=== PATIENT | female | born 1995 | race African-American/Black ===

== ENCOUNTER 2023-07-15 07:13 | Inpatient (IN) ==
--- NOTE | 2023-07-15 08:18 | History & Physical Report ---
Date of Service July 15, 2023 Assessment & Plan (1) Two vessel umbilical cord in [place] , antepartum: Plan: 28 yo at 39 3/7 wga presents w/ c/o vb and discharge VSS Fetus cat 1 VB/discharge - rom ruled out, mucous bloody discharge seen. SVE 3-4, seems a little stretchy so ?early labor. Will ambulate and recheck in a few hours History of Present Illness Chief Complaint: VB/discharge Primary Care Provider: NO PCP 28 yo at 39 3/7 wga presents for eval due to vb/discharge. Called early t his AM w/ vb in underwear and w/ wiping and ctx q20 and rec for eval due to bleeding. Since call, vb has improved, but thinks she is having leaking. +FM, notes ctx q10 PNI: 2VC Rubella nonimm G1 2021 SAB q30-60d cycles denies hx stis Allergies Allergy/AdvReac Type Severity Reaction Status Date / Time Penicillins Allergy Intermediate Swelling Verified 07/12/23 13:19 of Lip/Tongue/Throat Home Medications Medication Instructions Recorded Confirmed Type PNV [id number] PO 12/18/22 07/12/23 History [ Gummies(zinc chelate)] RSV vac, preF A and preF B(PF) 120 0.5 ml IM ONCE #1 ea 05/24/23 07/12/23 Rx mcg/0.5 mL IM solution (Abrysvo) Patient History Medical History History of chicken pox Surgical History S/P wisdom tooth extraction Family History (Updated 12/18/22 @ 10:00 by Licha Alexandra) Father Hypertension Denies family history of Ovarian cancer Breast cancer Colorectal cancer Social History (Updated 12/18/22 @ 10:02 by Licha Alexandra) Smoking Status: Never smoker Do You Dip or Chew Tobacco: No; Hx Alcohol Use: No Hx Substance Use: No Beliefs That Will Affect Care: None marital status: marital status details: tania Burgos (34) [phone] Current Living Situation: Spouse Current Living Situation Comment: lives with fob, dogs current occupational status: employed 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 Nitrazine equiv due to bloody mucous, no pooling or ferning Results & Data Vital Signs (Past 12 Hours) Vital Signs Temp Pulse Resp BP 07/15/23 07:20 98.2 F 18 07/15/23 07:18 91 H 135/88 Laboratory Results OB Labs: Blood Type O Positive 12/23/22 Antibody Screen NEGATIVE 12/23/22 Hemoglobin 12.3 g/dl (12.0-16.0) 04/22/23 Hematocrit 37.9 % (37.0-47.0) 04/22/23 Mean Corpuscular Volume 82.7 fL (80.0-100.0) 12/23/22 Platelet Count 328 K/uL (130-400) 12/23/22 Rubella IgG Antibody Non Immune (Immune) L 12/23/22 Rapid Plasma Reagin Nonreactive (Nonreactive) 12/23/22 Hepatitis B Surface Antigen. NON-REACTIVE (NON-REACTIVE) 12/23/22 Hepatitis C Antibody (EIA) NON-REACTIVE (NON-REACTIVE) 12/23/22 HIV (1&2) Ag and Ab Confirmation NON-REACTIVE (NON-REACTIVE) 12/23/22 Glucose 1 Hour 50 gm Load 108 mg/dl (70-130) 04/22/23 OB Optional Labs: Chlamydia trachomatis RNA Not Detected (NotDetected) 12/23/22 Neisseria gonorrhoeae RNA Not Detected (NotDetected) 12/23/22 GBS neg Coding Level of Care Code None Diagnoses Two vessel umbilical cord in [place] , antepartum O09.899
[2023-07-15] MEDS ORDERED: OXYTOCIN 30 UNITS/NSS 30 UNITS/500 ML BAG IV PRN ×3 (10:20→22:23)
[2023-07-15] MEDS ORDERED: LIDOCAINE 1% LOCAL 20 ML VIAL INFIL PRN (10:20)
--- NOTE | 2023-07-15 10:24 | Labor Progress Brief Note ---
Date of Service July 15, 2023 Subjective pt feels her ctx are closer and stronger. no leak. Assessment & Plan (1) 39 weeks gestation of : (2) Normal labor: (3) Two vessel umbilical cord in [place] , antepartum: (4) Not immune to rubella: Plan admit, labs, iv. early active labor. can arom when able. pt considering epidural. fhts categ 1. Physical Exam Constitutional: WD/WN, vitals as above Respiratory: normal respiratory effort, lungs clear to auscultation Cardiovascular: Rate/Rhythm: regular rate and regular rhythm Gastrointestinal (Abdomen): soft gravid nt Musculoskeletal: no edema nontender calves Neurologic: grossly normal Psychiatric: A+Ox3, euthymic affect Genitourinary: Manual OB Exam: + cervical dilation 5 cm, + cervical effacement 90% and + station -2 OB Exam Monitor Tracing: + external FHT monitor used, + external uterine monitor used (difficult tracing, irrit, ? q2), + category I and + normal FHT variability Results & Data Vital Signs (Past 12 Hours) Vital Signs Temp Pulse Resp BP 07/15/23 07:20 98.2 F 18 07/15/23 07:18 91 H 135/88 Coding Level of Care Code None Diagnoses 39 weeks gestation of Z3A.39 Normal labor O80; Z37.9 Two vessel umbilical cord in [place] , antepartum O09.899 Not immune to rubella Z78.9
[2023-07-15 10:42] LABS: Hematocrit (blood only) 36.4 % (37.0-47.0); Hemoglobin 12.4 g/dl (12.0-16.0); Mean Corpuscular Hemoglobin 27.9 pg (25.0-34.0); Mean Corpuscular Hgb Conc 34.1 g/dL (32.0-36.0); Mean Platelet Volume 11.2 fL (9.4-12.4); Platelet Count 267 K/uL (130-400); RDW Coefficient of Variation 14.9 % (11.5-14.5); RDW Standard Deviation 44.4 fL (36.4-46.3); Red Blood Count 4.44 M/uL (4.20-5.40); White Blood Count 12.35 K/ul (4.8-10.8)
[2023-07-15] MEDS: LACTATED RINGER'S 1,000 ML IV PRN ×3 (10:53→20:23)
[2023-07-15] MEDS ORDERED: fentaNYL citrate PF 100 MCG/2 ML VIAL ONE (10:57)
[2023-07-15] MEDS ORDERED: LIDOCAINE 2%/EPINEPHRINE 1:200,000 20 ML PF ONE ×2 (10:57→19:05)
[2023-07-15] MEDS ORDERED: fentANYL 2 MCG/ML BUPIVacaine 0.125%-NSS 100ML BAG ONE (10:57)
[2023-07-15] MEDS ORDERED: ePHEDrine sulfate 50 MG/ML AMP ONE (10:57)
[2023-07-15] MEDS ORDERED: SODIUM CHLORIDE 0.9% PF INJ 10 ML VIAL ONE (10:57)
[2023-07-15] MEDS ORDERED: BUPIVACAINE 0.25% PF 30 ML VIAL ONE (10:57)
--- NOTE | 2023-07-15 11:47 | Anesthesiology Consultation ---
Date of Service July 15, 2023 Assessment & Plan (1) Encounter for pre-operative examination: Chart Review Chart Review: Acceptable Risk for Labor Epidural History Height/Weight Height: 5 ft 8 in Weight: 111.13 kg Allergies Allergy/AdvReac Type Severity Reaction Status Date / Time Penicillins Allergy Intermediate Swelling Verified 07/15/23 11:41 of Lip/Tongue/Throat Medications Home Medications Medication Instructions Recorded Confirmed Last Taken vits no.124-ferrous fum 1 tab PO DAILY 07/15/23 07/15/23 Unknown 27 mg iron-folic acid 800 mcg tablet ( Vitamin) Active Medications Generic Name Dose Route Start Last Admin Trade Name Freq PRN Reason Stop Dose Admin Lactated Ringer's 1,000 mls @ 125 mls/hr 07/15/23 10:20 07/15/23 10:53 Lr IV 07/17/23 10:19 999 mls/hr .Q8H PRN Administration L&D Protocol Protocol NPO Last Intake of Fluids Comment: Sips Past Medical History Medical History History of chicken pox Past Family History Family History Father Hypertension Denies family history of Ovarian cancer Breast cancer Colorectal cancer Past Surgical History Surgical History S/P wisdom tooth extraction Social History Smoking Status: Never smoker Do You Dip or Chew Tobacco: No Hx Alcohol Use: No Hx Substance Use: No substance use type: does not use Physical Exam Vital Signs Last Vital Signs Temp 36.8 C 07/15/23 07:20 Pulse 91 H 07/15/23 07:18 Resp 18 07/15/23 07:20 BP 135/88 07/15/23 07:18 Testing Laboratory Results 07/15/23 10:25 Blood Type O Positive 07/15/23 10:25 Antibody Screen NEGATIVE 07/15/23 10:25
[2023-07-15] MEDS ORDERED: SODIUM CHLORIDE 0.9% PF INJ 10 ML VIAL EPI STA (12:08)
[2023-07-15] MEDS ORDERED: LIDOCAINE 2%/EPINEPHRINE 1:200,000 20 ML PF EPI STA (12:08)
[2023-07-15] MEDS ORDERED: LIDOCAINE 2% MPF LOCAL 5 ML VIAL EPI PRN (12:08)
[2023-07-15] MEDS ORDERED: ePHEDrine sulfate 50 MG/ML AMP IV PRN (12:08)
[2023-07-15] MEDS ORDERED: ONDANSETRON INJ 2 MG/ML 2 ML VIAL IV PRN (12:08)
[2023-07-15] MEDS ORDERED: SODIUM CHLORIDE 0.9% PF INJ 10 ML VIAL EPI PRN (12:08)
[2023-07-15] MEDS ORDERED: NALOXONE HCL 1 MG in SODIUM CHLORIDE 0.9% 1,000 ML IV PRN (12:08)
[2023-07-15] MEDS ORDERED: fentaNYL citrate PF 100 MCG/2 ML VIAL EPI STA (12:08)
[2023-07-15] MEDS ORDERED: ROPIVACAINE 0.5% PF 5 MG/ML 20 ML VIAL EPI PRN (12:08)
[2023-07-15] MEDS ORDERED: NALOXONE HCL 0.4 MG/1 ML VIAL/CARP IV PRN (12:08)
[2023-07-15] MEDS ORDERED: fentaNYL citrate PF 100 MCG/2 ML VIAL EPI PRN (12:08)
[2023-07-15] MEDS ORDERED: BUPIVACAINE 0.25% PF 30 ML VIAL EPI PRN (12:08)
[2023-07-15] MEDS ORDERED: fentANYL 2 MCG/ML BUPIVacaine 0.125%-NSS 100ML BAG EPI PRN (12:08)
[2023-07-15] MEDS ORDERED: BUPIVACAINE 0.25% PF 30 ML VIAL EPI STA (12:08)
--- NOTE | 2023-07-15 13:06 | Labor Progress Brief Note ---
Date of Service July 15, 2023 Subjective pt comfortable with epidural. Assessment & Plan (1) 39 weeks gestation of : (2) Normal labor: (3) Two vessel umbilical cord in [place] , antepartum: (4) Not immune to rubella: Plan no significant cx change but now srom so can see how that helps labor pattern. fhts categ 1. may need pit aug. Admission and Anticipated Discharge Date Admission Date: July 15, 2023 Physical Exam Constitutional: WD/WN, vitals as above Genitourinary: Manual OB Exam: + cervical dilation 5 cm, + cervical effacement 80%, + station -2 and + amniotic fluid (SROM) clear OB Exam Monitor Tracing: + external FHT monitor used, + external uterine monitor used (difficult to trace, ? q2-3), + category I and + normal FHT variability Results & Data Vital Signs (Past 12 Hours) Vital Signs Temp Pulse Resp BP Pulse Ox 07/15/23 13:00 88 99 07/15/23 12:55 97 H 98 07/15/23 12:50 109 H 100 07/15/23 12:47 100 H 104/62 07/15/23 12:45 107 H 100 07/15/23 12:40 97 H 100 07/15/23 12:35 107 H 100 07/15/23 12:30 97 H 100 07/15/23 12:29 105 H 100/59 L 07/15/23 12:25 100 07/15/23 12:25 104 H 07/15/23 12:25 102 H 111/60 07/15/23 12:20 99 07/15/23 12:20 109 H 07/15/23 12:20 103 H 114/61 07/15/23 12:15 108 H 99 07/15/23 12:14 102 H 108/55 L 07/15/23 12:13 100 H 107/54 L 07/15/23 12:10 115 H 100/54 L 100 07/15/23 12:08 111 H 112/56 L 07/15/23 12:06 103 H 114/56 L 07/15/23 12:05 95 H 99 07/15/23 12:04 98.1 F 106 H 16 114/59 L 07/15/23 12:03 102 H 117/58 L 07/15/23 12:00 107 H 100 07/15/23 11:55 98 H 128/62 100 07/15/23 11:51 106 H 94 07/15/23 11:50 112 H 94 07/15/23 07:20 98.2 F 18 07/15/23 07:18 91 H 135/88 Coding Level of Care Code None Diagnoses 39 weeks gestation of Z3A.39 Normal labor O80; Z37.9 Two vessel umbilical cord in [place] , antepartum O09.899 Not immune to rubella Z78.9
[2023-07-15] MEDS ORDERED: Nursing to Pharmacy Communication SCH (18:30)
[2023-07-15] MEDS ORDERED: ROPIVACAINE 0.5% 5 MG/ML 30 ML VIAL ONE (19:05)
--- NOTE | 2023-07-15 19:16 | Anesthesia Procedure Note ---
Date of Service July 15, 2023 Anesthesia Epidural Re-Dose Vital Signs Temp Pulse Resp BP Pulse Ox 36.6 C 92 H 18 148/81 H 100 07/15/23 19:05 07/15/23 19:09 07/15/23 19:05 07/15/23 19:07/15/23 19:09 Notes Pain Intensity: 7 Dilatation (cm): 6.0 Effacement (%): 90 Called by nursing to evaluate epidural as the patient is having increased pain. The epidural was re-dosed with the following medications (all medications via epidural route) after negative aspiration of the epidural catheter for CSF/HEME 1.2% lidocaine and 0.2% ropivacaine 7 ml After Epidural Re-Dose Mental Status: alert / awake / arousable Pain: improving with treatment Airway Patency, RR, SpO2: stable & adequate BP & HR: stable & adequate Additional Notes: increased pain across lower back but able to tolerate contractions with breathing hard.
--- NOTE | 2023-07-15 19:49 | Labor Progress Brief Note ---
Date of Service July 15, 2023 Subjective pt recently re-dosed and now comfortable. Assessment & Plan (1) 39 weeks gestation of : (2) Normal labor: (3) Two vessel umbilical cord in [place] , antepartum: (4) Not immune to rubella: Plan good cx change. c/w pitocin. fhts categ 1. Admission and Anticipated Discharge Date Admission Date: July 15, 2023 Physical Exam Constitutional: WD/WN, vitals as above Genitourinary: Manual OB Exam: + cervical dilation 7 cm, + cervical effacement 100%, + station 0 and + amniotic fluid (forebag noted and arom) clear OB Exam Monitor Tracing: + external FHT monitor used, + external uterine monitor used (q3) and + category I Results & Data Vital Signs (Past 12 Hours) Vital Signs Temp Pulse Resp BP Pulse Ox 07/15/23 19:44 105 H 98 07/15/23 19:40 110 H 144/65 H 07/15/23 19:39 101 H 99 07/15/23 19:34 102 H 97 07/15/23 19:29 110 H 99 07/15/23 19:24 98 07/15/23 19:24 102 H 07/15/23 19:24 103 H 122/59 L 07/15/23 19:19 100 H 128/62 100 07/15/23 19:17 96 H 133/64 07/15/23 19:15 94 H 142/66 H 07/15/23 19:14 94 H 99 07/15/23 19:13 89 141/68 H 07/15/23 19:09 92 H 100 07/15/23 19:05 18 07/15/23 19:05 97.9 F 18 07/15/23 19:04 88 97 07/15/23 19:01 97 H 148/81 H 07/15/23 18:59 90 99 07/15/23 18:54 87 97 07/15/23 18:49 86 97 07/15/23 18:46 87 128/65 07/15/23 18:44 90 99 07/15/23 18:39 89 98 07/15/23 18:34 82 98 07/15/23 18:31 86 129/64 07/15/23 18:29 90 99 07/15/23 18:24 99 07/15/23 18:24 88 07/15/23 18:24 85 139/65 07/15/23 18:22 96 H 92 07/15/23 18:19 100 H 96 07/15/23 18:17 99 H 180/99 H 07/15/23 18:10 89 98 07/15/23 18:09 93 H 94 07/15/23 18:05 89 97 07/15/23 18:01 89 145/73 H 07/15/23 18:00 90 98 07/15/23 17:55 94 H 99 07/15/23 17:50 93 H 18 99 07/15/23 17:47 88 144/76 H 07/15/23 17:45 79 98 07/15/23 17:41 102 H 93 07/15/23 17:40 93 H 99 07/15/23 17:35 100 H 99 07/15/23 17:32 95 H 133/73 07/15/23 17:31 99 H 90 07/15/23 17:30 92 H 98 07/15/23 17:25 97 H 98 07/15/23 17:20 97 H 99 07/15/23 17:17 98 H 141/76 H 07/15/23 17:15 97 H 98 07/15/23 17:10 93 H 98 07/15/23 17:05 97 H 99 07/15/23 17:01 98.2 F 95 H 18 128/70 07/15/23 17:00 92 H 99 07/15/23 16:55 97 H 100 07/15/23 16:50 97 H 99 07/15/23 16:46 96 H 117/67 07/15/23 16:45 93 H 99 07/15/23 16:40 99 H 99 07/15/23 16:35 96 H 99 07/15/23 16:31 88 115/61 07/15/23 16:30 90 98 07/15/23 16:25 93 H 97 07/15/23 16:20 88 97 07/15/23 16:16 87 113/59 L 07/15/23 16:15 90 97 07/15/23 16:10 91 H 98 07/15/23 16:05 86 98 07/15/23 16:03 18 07/15/23 16:03 18 07/15/23 16:02 16 07/15/23 16:02 98.2 F 16 07/15/23 16:02 100 H 07/15/23 16:02 103 H 115/69 86 L 07/15/23 16:00 81 97 07/15/23 15:55 80 98 07/15/23 15:50 81 98 07/15/23 15:46 79 117/56 L 07/15/23 15:45 79 98 07/15/23 15:40 81 100 07/15/23 15:35 91 H 99 07/15/23 15:31 82 122/57 L 07/15/23 15:30 80 98 07/15/23 15:25 91 H 100 07/15/23 15:20 94 H 98 07/15/23 15:19 90 92 07/15/23 15:17 88 129/62 07/15/23 15:15 101 H 99 07/15/23 15:10 95 H 100 07/15/23 15:05 98 H 99 07/15/23 15:02 96 H 123/57 L 07/15/23 15:00 106 H 99 07/15/23 14:58 18 07/15/23 14:58 18 07/15/23 14:55 90 98 07/15/23 14:50 86 99 07/15/23 14:47 88 118/58 L 07/15/23 14:45 88 99 07/15/23 14:40 88 99 07/15/23 14:35 84 98 07/15/23 14:31 93 H 128/64 07/15/23 14:30 89 99 07/15/23 14:25 95 H 100 07/15/23 14:20 99 H 100 07/15/23 14:18 90 120/64 07/15/23 14:15 90 98 07/15/23 14:10 90 99 07/15/23 14:05 97 H 100 07/15/23 14:01 98.4 F 88 18 128/63 07/15/23 14:00 92 H 18 99 07/15/23 13:55 93 H 99 07/15/23 13:50 100 H 98 07/15/23 13:46 88 127/62 86 L 07/15/23 13:45 90 98 07/15/23 13:40 90 98 07/15/23 13:36 98 H 90 07/15/23 13:35 98 H 99 07/15/23 13:31 93 H 98/59 L 07/15/23 13:30 94 H 100 07/15/23 13:25 87 98 07/15/23 13:20 94 H 100 07/15/23 13:16 99 H 101/58 L 07/15/23 13:15 97 H 100 07/15/23 13:10 94 H 100 07/15/23 13:05 95 H 100 07/15/23 13:02 103 H 18 124/57 L 07/15/23 13:00 88 99 07/15/23 12:55 97 H 98 07/15/23 12:50 109 H 100 07/15/23 12:47 100 H 104/62 07/15/23 12:45 107 H 100 07/15/23 12:40 97 H 100 07/15/23 12:35 107 H 100 07/15/23 12:30 97 H 100 07/15/23 12:29 105 H 100/59 L 07/15/23 12:25 100 07/15/23 12:25 104 H 07/15/23 12:25 102 H 111/60 07/15/23 12:20 99 07/15/23 12:20 109 H 07/15/23 12:20 103 H 114/61 07/15/23 12:15 108 H 99 07/15/23 12:14 102 H 108/55 L 07/15/23 12:13 100 H 107/54 L 07/15/23 12:10 115 H 100/54 L 100 07/15/23 12:08 111 H 112/56 L 07/15/23 12:06 103 H 114/56 L 07/15/23 12:05 95 H 99 07/15/23 12:04 98.1 F 106 H 16 114/59 L 07/15/23 12:03 102 H 117/58 L 07/15/23 12:00 107 H 100 07/15/23 11:55 98 H 128/62 100 07/15/23 11:51 106 H 94 07/15/23 11:50 112 H 94 Coding Level of Care Code None Diagnoses 39 weeks gestation of Z3A.39 Normal labor O80; Z37.9 Two vessel umbilical cord in [place] , antepartum O09.899 Not immune to rubella Z78.9
--- NOTE | 2023-07-15 22:21 | Delivery Summary ---
Vaginal Delivery Summary Date of Service July 15, 2023 Vaginal Delivery Summary and 3rd Degree LAC (partial) The patient dilated to complete and pushed to deliver a viable female Apgars 8 and 9 via over partial 3rd degree perineal laceration. Mouth and nose bulb suctioned at perineum. Loose nuchal x 1 reduced. Shoulders and body delivered with ease. was vigorous and crying at . Cord clamped at 40 seconds of life and to maternal abdomen where the cord was then doubly clamped and cut. Placenta delivered spontaneously and intact, three-vessel cord. Hemostasis achieved with dilute pitocin and uterine massage. Laceration repaired in layers with 2-0 and 3-0 vicryl, reinforcing the capsule. Rectal neg for sutures. Cervix and sulci intact. EBL 300 cc. Mother and baby stable in recovery. [facility] [place] Charge Delivery Type Details: and 3rd Degree LAC (partial)
[2023-07-15] MEDS ORDERED: BENZOCAINE 20% SPRY 85 APPLN/85 GM CAN EXT PRN (22:23)
[2023-07-15] MEDS ORDERED: HYDROCORTISONE ACETATE 25 MG SUPP PR PRN (22:23)
[2023-07-15] MEDS ORDERED: OXYTOCIN 20 UNITS/LR 1,002 ML IV SCH (22:23)
[2023-07-15] MEDS ORDERED: ACETAMINOPHEN 325 MG TAB PO PRN (22:23)
[2023-07-15] MEDS ORDERED: MEASLES, MUMPS & RUBELLA VIRUS VACCINE (MMR) VIAL SQ ONE (22:23)
[2023-07-15] MEDS ORDERED: DIPHTHER/TETAN/PERTUS Vaccine (Tdap, Adol/Adult) 0.5mL IM ONE (22:23)
[2023-07-16] MEDS: IBUPROFEN 600 MG TAB PO PRN ×3 (00:34→14:14)
--- NOTE | 2023-07-16 06:46 | Obstetrical Progress Note ---
Date of Service <Tata Pop DO - Last Filed: 07/16/23 06:50> July 16, 2023 Assessment & Plan <Tata Pop DO - Last Filed: 07/16/23 06:50> (1) care following vaginal delivery: Plan Feels well today. Eating well, voiding well, ambulating well. Pain well controlled with prn ibuprofen. Routine care; OOB, ambulation, continue regular diet. Anticipate discharge 24-48 hours after , tomorrow. After discharge will have 6 week follow-up with Dr. Gamez. <Milvia Gamez MD, FACOG - Last Filed: 07/16/23 08:04> (1) care following vaginal delivery: Subjective <Tata Pop DO - Last Filed: 07/16/23 06:50> Pt is a 28 y/o female who is PPD#1 following at 39 weeks. Today, pt states she is feeling okay. She states her bleeding is improving and her cramps are mild and relieved by ibuprofen. She has been ambulating, voiding, and tolerating regular diet. She is bottle feeding and states it is going okay. No questions or complaints at this time, would like to stay today to get adjusted to baby before heading home tomorrow. Constitutional: no fever, no chills or no sweats Respiratory: no dyspnea Cardiovascular: no chest pain or no palpitations Breast: no breast pain Genitourinary (female): no dysuria Neurologic: no headache(s) no changes in vision, Physical Exam <Tata Pop DO - Last Filed: 07/16/23 06:50> General: Alert, oriented. No acute distress. Cardiac: Regular rate and rhythm, no murmurs, rubs, or gallops. Respiratory: Clear to auscultation bilaterally, no wheezes/rales/rhonchi. No increased work of breathing. Symmetrical chest rise. No respiratory distress. Abdomen: Soft, nontender, nondistended. Bowel sounds present. Uterus: Uterine fundus firm, palpable below the umbilicus. Lower extremities: No lower extremity edema or swelling. No deep calf pain. Results & Data <Tata oPp DO - Last Filed: 07/16/23 06:50> Vital Signs (Past 12 Hours) Vital Signs Temp Pulse Pulse Resp BP BP Pulse Ox 07/16/23 04:12 36.7 C 85 20 146/94 H 100 07/16/23 00:41 36.8 C 117 H 18 153/88 H 07/16/23 00:22 121 H 128/78 07/16/23 00:15 20 07/15/23 23:45 18 07/15/23 23:45 112 H 142/76 H 07/15/23 23:30 102 H 130/75 07/15/23 23:15 20 07/15/23 23:14 116 H 126/65 07/15/23 23:00 18 07/15/23 22:46 110 H 18 148/61 H 07/15/23 22:45 18 07/15/23 22:30 18 07/15/23 22:30 115 H 92/53 L 07/15/23 22:15 18 07/15/23 22:15 113 H 142/74 H 07/15/23 22:09 108 H 94 07/15/23 22:08 115 H 93 07/15/23 22:04 114 H 97 07/15/23 21:59 121 H 97 07/15/23 21:54 132 H 99 07/15/23 21:49 117 H 99 07/15/23 21:44 114 H 100 07/15/23 21:41 112 H 131/72 07/15/23 21:39 110 H 99 07/15/23 21:34 110 H 98 07/15/23 21:30 18 07/15/23 21:30 36.8 C 18 07/15/23 21:29 101 H 96 07/15/23 21:27 98 H 93 07/15/23 21:24 104 H 125/74 98 07/15/23 21:19 109 H 98 07/15/23 21:14 109 H 98 07/15/23 21:09 107 H 120/71 98 07/15/23 21:04 105 H 98 07/15/23 21:00 18 07/15/23 21:00 18 07/15/23 20:59 102 H 97 07/15/23 20:55 103 H 125/75 07/15/23 20:54 103 H 98 07/15/23 20:49 111 H 100 07/15/23 20:44 100 H 100 07/15/23 20:39 108 H 115/72 99 07/15/23 20:34 110 H 99 07/15/23 20:30 16 07/15/23 20:30 16 07/15/23 20:29 109 H 99 07/15/23 20:26 100 H 121/73 07/15/23 20:24 110 H 99 07/15/23 20:19 108 H 100 07/15/23 20:14 114 H 100 07/15/23 20:11 107 H 128/61 07/15/23 20:10 107 H 91 07/15/23 20:09 101 H 99 07/15/23 20:04 102 H 100 07/15/23 20:00 16 07/15/23 20:00 16 07/15/23 19:59 100 H 98 07/15/23 19:55 108 H 110/57 L 07/15/23 19:54 101 H 96 07/15/23 19:49 104 H 99 07/15/23 19:44 105 H 98 07/15/23 19:40 110 H 144/65 H 07/15/23 19:39 101 H 99 07/15/23 19:34 102 H 97 07/15/23 19:29 110 H 99 07/15/23 19:24 98 07/15/23 19:24 102 H 07/15/23 19:24 103 H 122/59 L 07/15/23 19:20 07/15/23 19:19 100 H 128/62 100 07/15/23 19:17 96 H 133/64 07/15/23 19:15 94 H 142/66 H 07/15/23 19:14 94 H 99 07/15/23 19:13 89 141/68 H 07/15/23 19:09 92 H 100 07/15/23 19:05 18 07/15/23 19:05 36.6 C 18 07/15/23 19:04 88 97 07/15/23 19:01 97 H 148/81 H 07/15/23 18:59 90 99 07/15/23 18:54 87 97 07/15/23 18:49 86 97 07/15/23 18:46 87 128/65 O2 Del Method 07/16/23 04:12 Room Air 07/16/23 00:41 02/02/24 00:22 07/16/23 00:15 07/15/23 23:45 07/15/23 23:45 07/15/23 23:30 07/15/23 23:15 07/15/23 23:14 07/15/23 23:00 07/15/23 22:46 07/15/23 22:45 07/15/23 22:30 07/15/23 22:30 07/15/23 22:15 07/15/23 22:15 07/15/23 22:09 07/15/23 22:08 07/15/23 22:04 07/15/23 21:59 07/15/23 21:54 07/15/23 21:49 07/15/23 21:44 07/15/23 21:41 07/15/23 21:39 07/15/23 21:34 07/15/23 21:30 07/15/23 21:30 07/15/23 21:29 07/15/23 21:27 07/15/23 21:24 07/15/23 21:19 07/15/23 21:14 07/15/23 21:09 07/15/23 21:04 07/15/23 21:00 07/15/23 21:00 07/15/23 20:59 07/15/23 20:55 07/15/23 20:54 07/15/23 20:49 07/15/23 20:44 07/15/23 20:39 07/15/23 20:34 07/15/23 20:30 07/15/23 20:30 07/15/23 20:29 07/15/23 20:26 07/15/23 20:24 07/15/23 20:19 07/15/23 20:14 07/15/23 20:11 07/15/23 20:10 07/15/23 20:09 07/15/23 20:04 07/15/23 20:00 07/15/23 20:00 07/15/23 19:59 07/15/23 19:55 07/15/23 19:54 07/15/23 19:49 07/15/23 19:44 07/15/23 19:40 07/15/23 19:39 07/15/23 19:34 07/15/23 19:29 07/15/23 19:24 07/15/23 19:24 07/15/23 19:24 07/15/23 19:20 Room Air 07/15/23 19:19 07/15/23 19:17 07/15/23 19:15 07/15/23 19:14 07/15/23 19:13 07/15/23 19:09 07/15/23 19:05 07/15/23 19:05 07/15/23 19:04 07/15/23 19:01 07/15/23 18:59 07/15/23 18:54 07/15/23 18:49 07/15/23 18:46 Supervising Physician <Milvia Gamez MD, FACOG - Last Filed: 07/16/23 08:04> Co-Signing Physician Notes Resident Physician Supervision Note: I was present with Dr. Pop during the history and exam. I discussed the case with the resident and agree with the findings and plan as documented in the note. Any exceptions or clarifications are listed here: stable doing well. routine care. bottle/rhpos/needs mmr--given . abd soft ff 2 down nt, ext nt calves. now noting bp elevated--not at threshold to trt but different than yesterday during labo, will check labs and monitor. Documented By: Milvia Gamez MD, FACOG Resident Activity Tracking <Tata Pop DO - Last Filed: 07/16/23 06:50> Resident Involvement: Resident Care Provided Care Provided: OB Delivery
--- NOTE | 2023-07-16 07:40 | Anesthesia Procedure Note ---
Date of Service July 16, 2023 Anesthesia Post Epidural Note Vital Signs Vital Signs: Temp Pulse Resp BP Pulse Ox O2 Del Method 98.1 F 85 20 146/94 H 100 Room Air 07/16/23 04:12 07/16/23 04:12 07/16/23 04:12 07/16/23 04:12 07/16/23 04:12 07/16/23 04:12 Pain Intensity Bilateral Lower Back: Pain Intensity: 0 Notes Mental Status: alert / awake / arousable and participated in evaluation Nausea / Vomiting: adequately controlled Pain: adequately controlled Airway Patency, RR, SpO2: stable & adequate BP & HR: stable & adequate Hydration State: stable & adequate Neuraxial Anesthesia: was administered and sensory block is resolving Anesthetic Complications: no major complications apparent and Pt Satisfied with anesthetic care Epidural: Removed without complications and With tip intact
[2023-07-16 08:41] LABS: Hematocrit (blood only) 34.4 % (37.0-47.0); Hemoglobin 10.9 g/dl (12.0-16.0); Mean Corpuscular Hemoglobin 26.6 pg (25.0-34.0); Mean Corpuscular Hgb Conc 31.7 g/dL (32.0-36.0); Mean Corpuscular Volume 83.9 fL (80.0-100.0); Platelet Count 256 K/uL (130-400); RDW Coefficient of Variation 14.8 % (11.5-14.5); White Blood Count 15.13 K/ul (4.8-10.8)
[2023-07-16] MEDS: DOCUSATE SODIUM 100 MG CAP PO SCH ×2 (08:56→20:14)
[2023-07-16] MEDS: PRENATAL VITAMIN 1 TAB PO SCH (08:56)
[2023-07-16] MEDS: oxyCODONE/ACETAMINOPHEN 5mg/325mg TAB PO PRN ×2 (08:58→16:38)
[2023-07-16 09:01] LABS: Alanine Aminotransferase 10 U/L (7-52); Albumin Globulin Ratio 1.2 (0.9-2); Albumin Level 3.2 gm/dl (3.4-5.0); Alkaline Phosphatase 121 U/L (34-104); Anion Gap 5 (3-11); Aspartate Aminotransferase 19 U/L (13-39); BUN Creatinine Ratio 16.3 (10-20); Bilirubin Direct 0.1 mg/dl (0-0.2); Bilirubin,Total 0.6 mg/dl (0.2-1.0); Blood Urea Nitrogen 8 mg/dl (6-23); Calcium 9.2 mg/dl (8.6-10.3); Carbon Dioxide 26 mmol/L (21-32); Chloride 107 mmol/L (98-107); Creatinine Clr Calc Pharmacy 219.4 ml/min; Est GFR (African American) > 150.0 ml/min; Est GFR (Non-African American) 130.7 ml/min; Globulin 2.6 gm/dl (2.5-4.0); Glucose 106 mg/dl (70-99(Fasting)); Potassium 4.1 mmol/L (3.5-5.1); Sodium 138 mmol/L (136-145); Total Protein 5.8 gm/dl (6.0-8.3)
[2023-07-17] MEDS: IBUPROFEN 600 MG TAB PO PRN ×2 (00:44→07:48)
[2023-07-17] MEDS: oxyCODONE/ACETAMINOPHEN 5mg/325mg TAB PO PRN (00:45)
--- NOTE | 2023-07-17 06:46 | Obstetrical Progress Note ---
Date of Service <Tata Anderson Donn - Last Filed: 07/17/23 06:50> July 17, 2023 Assessment & Plan <Tata Nelsonluh - Last Filed: 07/17/23 06:50> (1) care following vaginal delivery: Plan Continuing to overall do well, tolerating diet, ambulating, voiding Pain well controlled with prn ibuprofen + percocet Routine care; OOB, ambulation, continue regular diet. Anticipate discharge 24-48 hours after , today. After discharge will have 6 week follow-up with Dr. Gamez. <Génesis Ponce MD, FACOG - Last Filed: 07/17/23 07:37> (1) care following vaginal delivery: Subjective <Tata Anderson Donn - Last Filed: 07/17/23 06:50> Pt is a 28 y/o female who is PPD#2 following at 39 weeks. Today, pt states she is feeling pretty good. She states that she has been ambulating, voiding, and tolerating oral intake. She has started breast feeding and it is going okay. Pain controlled with ibuprofen and percocet. Bleeding is improving. Would like to go home today. Constitutional: no fever, no chills or no sweats Respiratory: no dyspnea Cardiovascular: no chest pain or no palpitations Breast: no breast pain Genitourinary (female): no dysuria Neurologic: no headache(s) no changes in vision Physical Exam <Tata Anderson Donn - Last Filed: 07/17/23 06:50> General: Alert, oriented. No acute distress. Cardiac: Regular rate and rhythm, no murmurs, rubs, or gallops. Respiratory: Clear to auscultation bilaterally, no wheezes/rales/rhonchi. No increased work of breathing. Symmetrical chest rise. No respiratory distress. Abdomen: Soft, nontender, nondistended. Bowel sounds present. Uterus: Uterine fundus firm, palpable below the umbilicus. Lower extremities: No lower extremity edema or swelling. No deep calf pain. Results & Data <Tata Anderson Donn - Last Filed: 07/17/23 06:50> Vital Signs (Past 12 Hours) Vital Signs Temp Pulse Resp BP Pulse Ox O2 Del Method 07/16/23 22:30 36.4 C L 87 18 126/76 100 Room Air 07/16/23 20:10 36.4 C L 88 18 110/72 98 Room Air Supervising Physician <Génesis Ponce MD, FACOG - Last Filed: 07/17/23 07:37> Co-Signing Physician Notes Resident Physician Supervision Note: I was present with Dr. Pop during the history and exam. I discussed the case with the resident and agree with the findings and plan as documented in the note. Any exceptions or clarifications are listed here: [None] Documented By: Génesis Ponce MD, FACOG Resident Activity Tracking <Tata Pop DO - Last Filed: 07/17/23 06:50> Resident Involvement: Resident Care Provided Care Provided: OB Delivery
[2023-07-17] MEDS: DOCUSATE SODIUM 100 MG CAP PO SCH (07:48)
[2023-07-17] MEDS: PRENATAL VITAMIN 1 TAB PO SCH (07:48)
[2023-07-17] MEDS ORDERED: MEASLES, MUMPS & RUBELLA VIRUS VACCINE (MMR) VIAL ONE (07:56)
[2023-07-17] MEDS ORDERED: bisacodyL 10 MG SUPP PR PRN (22:23)
== END 2023-07-17 10:35 | disposition home or self-care (01) | DRG 768 ==
LOC: OPB 07:13 → 4S1 07:16 → 4E2 07-16 00:58